=== PATIENT | male | born 1995 | race Caucasian/White ===

== ENCOUNTER 2021-05-30 22:43 | Emergency (ER) | payer OTHER ==
[2021-05-30 23:53] LABS: BASOPHIL 0.5 % (0-2); EOSINOPHIL 1.5 % (0-5); HCT 42.9 % (42.0-52.0); HGB 14.3 g/dl (13.2-18.0); LYMPHOCYTE 43.1 % (15-48); MCH 31.6 pg (25.0-31.0); MCHC 33.3 g/dL (32.0-36.0); MCV 94.9 fL (78.0-100.0); MONOCYTE 7.4 % (0-12); MPV 11.7 fL (6.0-9.5); NEUTROPHIL 47.4 % (41-80); NRBC 0; PLT 179 K/uL (150-400); RBC 4.52 M/uL (4.70-6.00); RDW 12.6 % (11.5-14.0); WBC 8.1 K/uL (4.0-10.5)
[2021-05-31 00:29] LABS: ALBUMIN 4.3 g/dL (3.4-5.0); BUN 15 mg/dL (7-18); CHLORIDE 107 mmol/L (98-107); CO2 (BICARBONATE) 30 mmol/L (21-32); CREATININE 1.18 mg/dL (0.67-1.17); GLOBULIN (CALCULATION) 2.9 g/dL; GLUCOSE 85 mg/dL (74-106); POTASSIUM 4.2 mmol/L (3.5-5.1); TOTAL PROTEIN 7.2 g/dL (6.4-8.2)
[2021-05-31 00:30] LABS: ALKALINE PHOSHATASE 88 U/L (46-116); ALT 97 U/L (16-63); AST 30 U/L (15-37); BILIRUBIN - TOTAL 0.6 mg/dL (0.2-1.0); C-REACTIVE PROTEIN < 0.20 mg/dL (<=0.90)
== END 2021-05-31 01:46 | disposition home or self-care (01) ==
LOC: FER 22:43
PROVIDERS: Emergency Medicine Emergency Medical Services
DX: R41.89 Other symptoms and signs involving cognitive functions and awareness (principal); R16.0 Hepatomegaly, not elsewhere classified; Z86.19 Personal history of other infectious and parasitic diseases
CPT/HCPCS: 36415; 70450; 71250; 80053; 84443; 85025; 86140; G0480